=== PATIENT | female | born 1985 | race African-American/Black ===

== ENCOUNTER 2016-06-04 20:06 | Emergency (ER) | payer OTHER ==
[2016-06-04] MEDS ORDERED: IOPAMIDOL 300 (61%) 150 ML VIAL IV ONE (20:07)
[2016-06-04 20:55] LABS: URINE BILIRUBIN NEGATIVE (NEGATIVE); URINE BLOOD 4+ (NEGATIVE); URINE GLUCOSE (UA) 3+ (NEGATIVE); URINE LEUKOCYTE ESTERASE NEGATIVE (NEGATIVE); URINE NITRITE NEGATIVE (NEGATIVE); URINE PROTEIN NEGATIVE (NEGATIVE); URINE UROBILINOGEN NORMAL (0-1 mg/dl)
[2016-06-04 21:01] LABS: HCG,QUALITATIVE URINE NEGATIVE
[2016-06-04 21:03] LABS: URINE APPEARANCE HAZY; URINE COLOR LIGHT YELLOW
[2016-06-04 21:18] LABS: URINE BACTERIA RARE; URINE EPITHELIAL CELLS 0 /hpf; URINE WBC NEG /hpf
[2016-06-04] MEDS ORDERED: ONDANSETRON 4 MG/2ML 2 ML VIAL ONE (21:37)
[2016-06-04] MEDS ORDERED: SODIUM CHLORIDE 0.9% 1,000 ML ONE ×2 (21:37→22:05)
[2016-06-04] MEDS ORDERED: PANTOPRAZOLE SODIUM 40 MG VIAL IV ONE (21:37)
[2016-06-04 22:06] LABS: ABSOLUTE NEUTROPHIL COUNT 5.3 K/mm3 (1.8-7.7); BASO % 0.2 % (0.2-1.0); EOS # 0.2 (0.0-0.5); EOS % 2.4 % (0.9-2.9); HEMATOCRIT 44.5 % (37.0-47.0); IMM NEUT% 0.2 % (0-1); LYMPH # 3.3 (1.0-4.8); LYMPH % 35.4 % (15-45); MEAN CELL VOLUME 78.3 fl (81.0-99.0); MEAN CORPUSCULAR HEMOGLOBIN 22.9 pg (27.0-31.0); MEAN CORPUSCULAR HGB CONC 29.2 g/dl (33.0-37.0); MEAN PLATELET VOLUME 12.3 fl (7.4-10.4); MONO # 0.5 (0.0-0.8); MONO % 4.8 % (4-12); PLATELET COUNT 300 K/mm3 (130-400); RED CELL DISTRIBUTION WIDTH 17.1 % (11.5-14.5)
[2016-06-04 22:15] LABS: ALB/GLOB RATIO 0.9 (>1.0); ALBUMIN 3.7 gm/dL (3.5-5.7); CALCIUM 9.7 mg/dL (8.6-10.3)
[2016-06-04] MEDS ORDERED: INSULIN REGULAR HUMAN (DOSE) 100 UNITS/1 ML ONE ×2 (22:48→23:44)
--- NOTE | 2016-06-05 08:01 | CT ---
ABD/PELVIS W/ CON COMPARISON: None. HISTORY: Right lower quadrant pain and hematuria. Past history of cholecystectomy. Technique: Intravenous injection 125 mL Isovue 300. Using a [employer] Aquilion [address] scanner, images were obtained from the diaphragm to the floor the pelvis. An automated dose reduction technique was used to minimize patient radiation dose. Dose information: CTDIvol (mGy): 45.00 DLP(mGycm): 2503.90 FINDINGS: Lung bases: On image 1 in the lateral right lower lobe, 4.1 mm noncalcified nodule. Inferior mediastinum and heart: Normal. Liver: Attenuation decreased, evidence of fatty infiltration. Gallbladder: Cholecystectomy. Bile ducts: Normal. Pancreas: Normal. Spleen: Normal. Adrenal glands: Normal. Kidneys: Normal. Ureters: Normal Urinary bladder: Normal. Uterus and adnexa: Normal. Blood vessels: Normal Lymph nodes: Normal Stomach: Normal Duodenum: Normal Small intestine: Normal Appendix: Normal Colon: Normal Abdominal wall and supporting musculature: Normal Bones: Normal IMPRESSION: 1. No acute finding. 2. Fatty infiltration of liver. Cholecystectomy. 3. Incidentally noted 4 mm noncalcified nodule in the right lower lobe. Given the patient's age of [age] years old, no follow-up is recommended. Preliminary report by [facility] radiologist Debbie Campa M.D. 06/04/2016 at 23:12
[2016-06-05 18:51] LABS: A1C-GLYCOHEMOGLOBIN 1.5 g/dl; HEMOGLOBIN-GLYCO 13.6 g/dl
== END 2016-06-05 01:05 | disposition home or self-care (01) ==
LOC: ED 20:06
DX: E11.9 Type 2 diabetes mellitus without complications (principal); R10.9 Unspecified abdominal pain; F17.210 Nicotine dependence, cigarettes, uncomplicated
CPT/HCPCS: 83690; 81025; 85025; 80053; 83036; 81001; 74177; 96375 ×2; 96376; 99284 ×2; 96374; 96361; 82962 ×3; C9113; J2405; J7030 ×2; J1815 ×2; Q9967